=== PATIENT | female | born 1980 | race Caucasian/White ===

== ENCOUNTER 2016-11-28 12:08 | Day surgery (SDC) | payer MEDICAID ==
[~2016-11-28] VITALS: Ht 162.6 cm; Wt 122.7 kg
[~2016-11-28 12:08] MED LIST: ALDACTONE50 MG PO; GABAPENTIN100 MG PO; HYDROCODONE-APA1 TAB PO; SINEQUAN100 MG PO; TENORMIN25 MG PO; TOPAMAX100 MG PO; VENTOLIN HFA18 GM INH; XANAX1 MG PO; ZANTAC300 MG PO; ZESTORETIC 20-1 EACH PO
[2016-11-28 13:00] LABS: HEMOGLOBIN 14.1 g/dL (12-16); MCH 32.7 pg (26.0-34.0); MCHC 33.6 g/dL (31.0-37.0); MCV 97.4 fL (80.0-100.0); MEAN PLATELET VOLUME 10.3 fL (7.4-10.4); RBC 4.31 10x6/uL (4.00-5.40); RDW 13.4 % (11.5-14.5); WBC 8.3 10x3/uL (4.8-10.8)
[2016-11-28 13:10] LABS: CALC OSMOLALITY 273 mosm/kg (275-300); CALCIUM 9.1 mg/dL (8.5-10.1); CARBON DIOXIDE 27.1 mmol/L (21.0-32.0); CHLORIDE - SERUM 100 mmol/L (98-107); CREATININE - SERUM 0.9 mg/dL (0.6-1.3); GLUCOSE 109 mg/dL (74-106); POTASSIUM - SERUM 4.3 mmol/L (3.5-5.1); SODIUM 136 mmol/L (136-145); UREA NITROGEN 15 mg/dL (7-18); eGFR NON AFRICAN AMERICAN 75 mL/min (90-120)
[2016-11-28] MEDS ORDERED: AMBIEN10 MG PO (15:19)
[2016-11-28] MEDS ORDERED: DYRENIUM100 MG PO (15:23)
[2016-11-28] MEDS ORDERED: CELEXA10 MG PO (15:24)
[2016-11-28 15:33] VITALS: BP 105/52; Ht 162.6 cm; Wt 122.7 kg
[2016-11-28 15:36] LABS: HCG URINE NEGATIVE (NEGATIVE)
--- NOTE | 2016-11-28 17:51 | NUR ---
1700 IV REMOVE BY DACIA RUSSO 1710 PT LEFT INFORM ME I MET HER COMING DOWN THE DOWLING THAT SHE HAD BEEN DICHARGE . ASKED NURSES NO DISCHARGE HER
--- NOTE | 2016-12-03 12:04 | OP ---
PATIENT NAME: DEENA BORJA MEDICAL RECORD: [id number] :82 LOCATION:D.OPS ADMISSION DATE: SURGEON: CRISTHIAN BRITO DO DATE OF OPERATION: 11/28/2016 PROCEDURE: EGD with biopsies. ENDOSCOPIST: Cristhian Brito DO. SCOPE: Olympus video gastroscope. MEDICATIONS: Propofol 250 mg IV per anesthesia. INDICATION: This epigastric abdominal pain, heartburn, nausea and vomiting. FINDINGS: Informed consent was given. The patient was made comfortable with the above medication. After reaching an adequate level of sedation by slow IV push, the patient was placed on her left side. The endoscope was then advanced under direct visualization through the mouth to the second portion of duodenum. The upper, middle and distal thirds of the esophagus revealed normal mucosa. At the GE junction, there was evidence of mild LA class A reflux-induced esophagitis. The scope was advanced through the GE junction into the stomach and retroflexed to view the cardia. There was a small sliding hiatal hernia present. The fundus of the stomach as well as the body, antrum and prepyloric region appeared normal. Random biopsies were taken of the antrum, incisura and body of the stomach for histology and to rule out H. pylori. The scope was advanced through the pylorus into the duodenum where the bulb and second portion of the duodenum appeared normal. The scope was then withdrawn from the patient. The patient tolerated the procedure well and there were no complications. IMPRESSION: 1. LA class A reflux induced esophagitis at the gastroesophageal junction. 2. A small sliding hiatal hernia. PLAN AND RECOMMENDATIONS: 1. Discharge home when recovery parameters are met. 2. Reflux precautions. 3. Continue ranitidine 150 mg 1-2 tablets p.o. at bedtime. 4. We will offer referral to surgery to discuss surgery to help with reflux and we will discuss this with the patient. 5. If nausea and vomiting returns, consider gastric emptying study, as well as the right upper quadrant ultrasound if this has not been performed yet. TRANSINT:[id number] Voice Confirmation ID: [id number] DOCUMENT ID: [id number] CRISTHIAN BRITO DO at 1204 CC: [id number] DICTATION DATE: 11/28/160 [employer] SIGNAL AND SWITCH OPERATOR: 11/[id number] [facility] 11/28/16 [facility] [address] [place] [address]
== END 2016-11-28 17:10 | disposition home or self-care (01) ==
LOC: D.OPS 12:08
PROVIDERS: Anesthesiology; Internal Medicine Gastroenterology
DX: K21.0 Gastro-esophageal reflux disease with esophagitis (principal); K44.9 Diaphragmatic hernia without obstruction or gangrene; F17.200 Nicotine dependence, unspecified, uncomplicated; G47.33 Obstructive sleep apnea (adult) (pediatric); I10 Essential (primary) hypertension

== ENCOUNTER → 2016-12-10 09:16 | Outpatient (CLI) | payer MEDICAID ==
[2016-11-28 15:33] VITALS: BMI 46.4
[~2016-12-10 09:16] MED LIST changes: +AMBIEN10 MG PO; +CELEXA10 MG PO; +DYRENIUM100 MG PO
[2016-12-10 11:17] LABS: HCG SERUM NEGATIVE (NEGATIVE)
== END | disposition home or self-care (01) ==
LOC: D.US 09:16 → D.NM 11:30
PROVIDERS: Internal Medicine Gastroenterology
DX: R11.2 Nausea with vomiting, unspecified (principal); R12 Heartburn; R10.13 Epigastric pain

== ENCOUNTER → 2017-01-02 10:21 | Outpatient (CLI) | payer MEDICAID ==
[2016-11-28 15:33] VITALS: BMI 46.4
== END | disposition home or self-care (01) ==
LOC: D.RAD 10:21
DX: K21.9 Gastro-esophageal reflux disease without esophagitis (principal)

== ENCOUNTER 2017-03-04 05:52 | Day surgery (SDC) | payer MEDICAID ==
[~2017-03-04] VITALS: Ht 162.6 cm; Wt 128.6 kg
[2017-03-04] VITALS (11 sets, daily range): BP systolic 111–130; BP diastolic 55–72; Ht 162.6 cm; Wt 128.6 kg
[2017-03-04 06:45] LABS: BASOPHILS 0.3 % (0-2); HEMATOCRIT 40.4 % (36.0-48.0); HEMOGLOBIN 13.6 g/dL (12-16); IMMATURE GRANULOCYTES 0.5 % (0-5); MCH 32.2 pg (26.0-34.0); MCHC 33.7 g/dL (31.0-37.0); MCV 95.7 fL (80.0-100.0); MEAN PLATELET VOLUME 9.9 fL (7.4-10.4); MONOCYTES 9.4 % (2-11); NEUTROPHILS 53.8 % (40-80); PLATELET COUNT 297 10x3/uL (130-400); RBC 4.22 10x6/uL (4.00-5.40); RDW 13.9 % (11.5-14.5); WBC 8.8 10x3/uL (4.8-10.8)
[2017-03-04 07:04] LABS: ANION GAP 16.9 mmol/L (8-16); CREATININE - SERUM 1.2 mg/dL (0.6-1.3); POTASSIUM - SERUM 3.9 mmol/L (3.5-5.1)
[2017-03-04] MEDS ORDERED: LAMICTAL100 MG PO (07:05)
[2017-03-04] MEDS ORDERED: CYCLOBENZAPRINE10 MG PO (07:06)
[2017-03-04 07:15] LABS: HCG URINE NEGATIVE (NEGATIVE)
[2017-03-05] VITALS: BP 132/73
[2017-03-05 04:00] VITALS: BP 125/69
[2017-03-05 05:08] LABS: BASOPHILS 0.2 % (0-2); EOSINOPHILS 0.7 % (0-7); HEMATOCRIT 40.4 % (36.0-48.0); HEMOGLOBIN 13.4 g/dL (12-16); IMMATURE GRANULOCYTES 0.5 % (0-5); LYMPHOCYTES 24.8 % (15-50); MCH 32.4 pg (26.0-34.0); MCHC 33.2 g/dL (31.0-37.0); MCV 97.6 fL (80.0-100.0); MEAN PLATELET VOLUME 10.2 fL (7.4-10.4); MONOCYTES 7.9 % (2-11); NEUTROPHILS 65.9 % (40-80); PLATELET COUNT 298 10x3/uL (130-400); RBC 4.14 10x6/uL (4.00-5.40); RDW 13.9 % (11.5-14.5); WBC 10.3 10x3/uL (4.8-10.8)
[2017-03-05 05:17] LABS: CHLORIDE - SERUM 98 mmol/L (98-107); CREATININE - SERUM 0.9 mg/dL (0.6-1.3); GLUCOSE 103 mg/dL (74-106); SODIUM 134 mmol/L (136-145); eGFR NON AFRICAN AMERICAN 75 mL/min (90-120)
[2017-03-05 05:19] LABS: CALC OSMOLALITY 269 mosm/kg (275-300); CARBON DIOXIDE 26.3 mmol/L (21.0-32.0); UREA NITROGEN 17 mg/dL (7-18)
[2017-03-05 08:44] VITALS: BP 127/74
[2017-03-05] MEDS ORDERED: PHENERGAN25 M1 PO (10:43)
== END 2017-03-05 11:18 | disposition home or self-care (01) ==
LOC: D.OPS 05:52 → D.MS 05:52 → D.OPS 07:30 → D.PAN 08:15 → D.MS 12:10 → D.OPS 03-05 11:18
PROVIDERS: Surgery
DX: K44.9 Diaphragmatic hernia without obstruction or gangrene (principal); K21.9 Gastro-esophageal reflux disease without esophagitis; E66.01 Morbid (severe) obesity due to excess calories; F20.9 Schizophrenia, unspecified; Z01.812 Encounter for preprocedural laboratory examination

== ENCOUNTER 2018-05-15 22:28 | Emergency (ER) | payer MEDICAID ==
[~2018-05-15] VITALS: Ht 162.6 cm; Wt 104.3 kg
[~2018-05-15 22:28] MED LIST changes: +CYCLOBENZAPRINE10 MG PO; +LAMICTAL100 MG PO; +PHENERGAN25 M1 PO
[2018-05-15 23:00] VITALS: Ht 162.6 cm; Wt 104.3 kg
[2018-05-15 23:14] LABS: BASOPHILS 0.3 % (0-2); EOSINOPHILS 1.4 % (0-7); HEMATOCRIT 41.1 % (36.0-48.0); HEMOGLOBIN 14.2 g/dL (12-16); LYMPHOCYTES 30.9 % (15-50); MCH 33.9 pg (26.0-34.0); MCHC 34.5 g/dL (31.0-37.0); MCV 98.1 fL (80.0-100.0); MEAN PLATELET VOLUME 10.1 fL (7.4-10.4); MONOCYTES 5.8 % (2-11); NEUTROPHILS 60.6 % (40-80); RBC 4.19 10x6/uL (4.00-5.40); RDW 13.7 % (11.5-14.5); WBC 11.5 10x3/uL (4.8-10.8)
[2018-05-15 23:15] LABS: PLATELET COUNT 218 10x3/uL (130-400)
[2018-05-15 23:26] LABS: APPEARANCE CLEAR (CLEAR); BILIRUBIN NEGATIVE (NEGATIVE); COLOR YELLOW (YELLOW); GLUCOSE NEGATIVE (NEGATIVE); KETONE NEGATIVE (NEGATIVE); NITRITE NEGATIVE (NEGATIVE); PROTEIN NEGATIVE (NEGATIVE); UROBILINOGEN NORMAL (NORMAL)
[2018-05-15 23:33] LABS: UDS - AMPHET NEGATIVE QUAL (NEGATIVE); UDS - BARB NEGATIVE QUAL (NEGATIVE); UDS - BENZO NEGATIVE QUAL (NEGATIVE); UDS - COCAINE NEGATIVE QUAL (NEGATIVE); UDS - OPIATE NEGATIVE QUAL (NEGATIVE); UDS - PCP NEGATIVE QUAL (NEGATIVE); UDS - THC NEGATIVE QUAL (NEGATIVE)
[2018-05-15 23:38] LABS: CALCIUM 7.9 mg/dL (8.5-10.1); CARBON DIOXIDE 22.7 mmol/L (21.0-32.0); THYROID STIMULATING HORMONE 2.87 uIU/mL (0.36-3.74)
[2018-05-15 23:41] LABS: ANION GAP 12.7 mmol/L (8-16); POTASSIUM - SERUM 3.4 mmol/L (3.5-5.1)
[2018-05-16 00:57] VITALS: BP 135/89
== END 2018-05-16 00:57 | disposition home or self-care (01) ==
LOC: D.ER 22:28
PROVIDERS: Emergency Medicine
DX: F19.129 Other psychoactive substance abuse with intoxication, unspecified (principal); I10 Essential (primary) hypertension; J44.9 Chronic obstructive pulmonary disease, unspecified; Z86.59 Personal history of other mental and behavioral disorders; F17.200 Nicotine dependence, unspecified, uncomplicated

== ENCOUNTER → 2018-08-05 08:13 | Outpatient (CLI) | payer MEDICAID ==
[2018-05-15 23:00] VITALS: BMI 48.7
[2018-08-05 09:32] LABS: ALBUMIN 3.5 g/dL (3.4-5.0); BILIRUBIN - DIRECT 0.09 mg/dL (0.00-0.30); BILIRUBIN - INDIRECT 0.37 mg/dL (0.00-1.00); BILIRUBIN - TOTAL 0.46 mg/dL (0.2-1.3); PROTEIN - SERUM 8.2 g/dL (6.4-8.2)
== END | disposition home or self-care (01) ==
LOC: D.US 07-10 08:00 → D.LAB 07-10 08:30 → D.US 08:13
PROVIDERS: Internal Medicine Gastroenterology
DX: K76.0 Fatty (change of) liver, not elsewhere classified (principal)

== ENCOUNTER 2018-10-07 05:08 | Outpatient (CLI) | payer MEDICAID ==
[~2018-10-07] VITALS: Ht 162.6 cm; Wt 135.9 kg
[2018-10-07 05:30] LABS: BASOPHILS 0.2 % (0-2); EOSINOPHILS 1.9 % (0-7); HEMATOCRIT 42.2 % (36.0-48.0); HEMOGLOBIN 14.4 g/dL (12-16); IMMATURE GRANULOCYTES 0.2 % (0-5); LYMPHOCYTES 35.6 % (15-50); MCH 33.2 pg (26.0-34.0); MCHC 34.1 g/dL (31.0-37.0); MCV 97.2 fL (80.0-100.0); MEAN PLATELET VOLUME 9.8 fL (7.4-10.4); MONOCYTES 6.8 % (2-11); NEUTROPHILS 55.3 % (40-80); RBC 4.34 10x6/uL (4.00-5.40); RDW 13.4 % (11.5-14.5); WBC 8.3 10x3/uL (4.8-10.8)
[2018-10-07 05:31] LABS: PLATELET COUNT 278 10x3/uL (130-400)
[2018-10-07 05:38] LABS: APTT 30.1 SECONDS (22.8-39.4); INR 0.93 (0.85-1.17)
[2018-10-07 05:46] LABS: CALCIUM 8.9 mg/dL (8.5-10.1)
[2018-10-07 06:35] VITALS: BP 111/60; Ht 162.6 cm; Wt 135.9 kg
[2018-10-07 08:21] LABS: HCG URINE NEGATIVE (NEGATIVE)
--- NOTE | 2018-10-07 09:00 | NUR ---
SEE POST PROCEDURE SHEET FOR FREQUENT VITAL SIGNS. REC'D FROM [facility]CI[facility] POST LIVER BX. AWAKE AND WANTING ICE CREAM CHOCOLATE AND VANILLA. APPLE JUICE BROUGHT TO PT WELL. NO FAMILY/FRIEND AT BEDSIDE. REGULAR TRAY ORDERED FOR PT. DRESSING CDI TO RIGHT SIDE OF ABD.
--- NOTE | 2018-10-07 09:15 | NUR ---
BREAKFAST SERVED. EXPLAINED ORDERS SAY SHE CAN LEAVE AT 1200. PT RELATES SHE WAS TOLD IN SPECIALS SHE COULD LEAVE IN 2 HRS.
--- NOTE | 2018-10-07 09:30 | NUR ---
TOLERATED REGULAR TRAY.
--- NOTE | 2018-10-07 09:45 | NUR ---
PT WANTING TO GO HOME. EXPLAINED THE ORDER READS SHE CAN LEAVE AT 12:OO. RELATES SHE WAS TOLD SHE WOULD NOT HAVE TO BE HERE LONG. TOLD PT WOULD CALL [employer]ALS AND SEE WHEN THE EARLIEST SHE COULD LEAVE.
--- NOTE | 2018-10-07 09:47 | NUR ---
CALLED CT AND SPOKE WITH DAVID. DAVID ASKED DR TODD IF HIS LUNG BX HAD TO STAY INTIL 12 AND HE CONFIRMED YES.
--- NOTE | 2018-10-07 09:50 | NUR ---
TOLD PT DR TODD SAID SHE HAD TO STAY UNTIL 12:OO AND PT RELATED SHE IS NOT STAYING. EXPLAINED THE RISKS AND BENEFITS OF STAYING/LEAVING THE HOSPITAL AND HER INSURANCE COULD OPT TO NOT PAY. PT RELATES SHE IS STILL NOT STAYING. IV DC'D WITH CATHETER INTACT.
--- NOTE | 2018-10-07 10:15 | NUR ---
WRITTEN AND VERBAL DC INST GIVEN TO PT. VERBALIZED UNDERSTANDING. AMA FORM COMPLETED AND SIGNED.
--- NOTE | 2018-10-07 10:20 | NUR ---
DC'D HOME WITH FRIEND AGAINST MEDICAL ADVICE VIA PRIVATE VEHICLE. TAKEN TO VEHICLE VIA WC. STABLE AT TIME OF DC. DR TODD NOTIFIED OF PT LEAVING AMA.
[2018-10-08 09:18] LABS: HEPATITIS C ANTIBODY <0.1 S/CO RAT (0.0-0.9)
[2018-10-08 11:20] LABS: ALPHA FETOPROTEIN -(TUMOR MRK) 1.1 ng/mL (0.0-8.3)
== END 2018-10-07 10:20 | disposition home or self-care (01) ==
LOC: D.SP 05:08 → D.CT 08:00 → D.SP 08:00
PROVIDERS: Internal Medicine Gastroenterology; Radiology Vascular & Interventional Radiology
DX: K75.81 Nonalcoholic steatohepatitis (NASH) (principal); K74.0 Hepatic fibrosis; Z01.812 Encounter for preprocedural laboratory examination